=== PATIENT | male | born 1990 | race Caucasian/White ===

== ENCOUNTER 2024-02-20 09:45 | Emergency (ER) | payer BC, SELFPAY ==
[2024-02-20 09:48] VITALS: BP 125/86
--- NOTE | 2024-02-20 10:19 | ED.GENMED ---
History of Present Illness
General
Chief Complaint: Back Pain
Source: patient
Exam Limitations: none
Time Seen by Provider: 02/20/24 10:03
Nursing documentation reviewed up to this point in time: agreed with
History of Present Illness
History of Present Illness:
Patient is a 33-year-old male who presents to the ER complaining of low back pain. He started with pain on Saturday night. 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 He reports pain is worse with
movement. It did not radiate. He denies any weakness in lower extremities. He denies any bowel or bladder incontinence. He denies any paresthesias denies any saddle paresthesia. He denies any abdominal pain, urinary frequency or urgency.
Denies any hematuria. No recent fever/rash
He has taken ibuprofen which and has used moist heat. He does report that he does seem to help. He went to urgent care and was sent here to the ER.
Past History
Past History
ED Past Medical History: None
ED Past Surgical History: Orthopedic
Social History
Tobacco: Non-smoker
Alcohol: None
Drug: None
Living: with family
Phy Exam
General Physical Exam
General Presentation: no apparent distress
General age: appears stated age
General Skin: warm and dry
General Habitus: normal
General Mental: alert
General Hydration: appears well hydrated
Neurological Exam
Neurological Exam: alert, oriented x3, no motor deficits, normal reflexs and other (Normal dorsiflexion plantarflexion bilaterally intact distal sensation )
Musculoskeletal Exam
Musculoskeletal Exam: full ROM and other (normal inspection to back no erythema no midline tenderness mildly tender to bilateral paralumbar region)
Skin Exam
Skin Exam: normal color and warm/dry
Psychiatric Exam
Psychiatric Exam: normal mood/affect
Course
Orders/Labs/Results
Orders:
Orders
02/20/24 10:18
Acetaminophen [Tylenol] 1,000 mg PO NOW STA
Ketorolac [Toradol] 30 mg IM NOW STA
Lidocaine [Lidocaine 4% Patch] 1 patch TOPICAL NOW STA
Apply Lidocaine patch(s) to:: lumbar region
Vital Signs
Initial and Last Documented VS:
Initial Vital Signs
Temp Pulse Resp BP Pulse Ox
98.1 F 72 18 125/86 99
02/20/24 09:48 02/20/24 09:48 02/20/24 09:48 02/20/24 09:48 02/20/24 09:48
Last Documented Vital Signs
Temp Pulse Resp BP Pulse Ox
98.1 F 72 18 125/86 99
02/20/24 09:48 02/20/24 09:48 02/20/24 09:48 02/20/24 09:48 02/20/24 09:48
MDM/Problems Addressed
Differential Diagnosis Includes:
Not limited to muscle strain
MDM/Problems Addressed:
Symptoms are consistent with lumbar muscular pain. 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
Patient he has no neuro deficits. He does mention that he had problems with abuse of Percocet this past.
will Hold off on muscle relaxers and recommend continued ibuprofen alternating with Tylenol and lidocaine patch with warm moist heat. Patient was given IM Toradol here along with Tylenol Pt non toxic stable for d/c home.
Chronic conditions affecting care:
Issues with narcotic abuse in the past
*Critical Care Note
Total Time (30-74mins, 75-104mins- exclusive of procedures): Not Applicable
ED Attending Note
-
Portions of this chart may have been created with voice recognition software.� Occasional wrong word or��sound alike� substitutions may have occurred due to the inherent limitations of voice recognition software.
Discharge Plan
Departure
Patient Disposition: Home (Routine Discharge)
Date of Disposition: 02/20/24
Time of Disposition: 10:22
Patient with high blood pressure during this ER visit?: No
Condition: Fair
Covid-19: Not Applicable
Discharge Problem:
Low back pain
Instructions: Low Back Pain (DC), BLOOD PRESSURE
Prescriptions:
New
lidocaine 5 % adhesive patch,medicated
1 patch topical DAILY Qty: 15 0RF
Referrals:
Gio William DO [Family Provider] -
Activity Restrictions/Additional Instructions:
As discussed symptoms are consistent with muscular strain. You may take ibuprofen 600 mg every 8 hours with food alternate with Tylenol. A lidocaine patch was sent to your pharmacy use as directed. Follow-up with your family doctor in the next
several days. return if any worsening of symptoms including worsening back pain loss of bowel or bladder numbness tingling weakness in extremities.
Interventions
Interventions:
*Risk Screen - Suicide Last Done: 02/20/24 09:48
*General Assessment Last Done: 02/20/24 09:48
*Neglect/Abuse Screening Last Done: 02/20/24 09:48
ED- Fall Risk Assessment Last Done: 02/20/24 10:33
*ED COVID-19 Vaccine History Last Done: 02/20/24 09:48
*Nursing Disposition Last Done: 02/20/24 10:33
ED-Musculoskeletal Assessment Last Done: 02/20/24 10:32
Discharge Date and Time
Discharge Date/Time: 02/20/24 10:33
Print Language: CROATIAN
[2024-02-20] MEDS: LIDOCAINE 4% PATCH 1 PATCH TOPICAL (10:26)
[2024-02-20] MEDS: TORADOL 30 MG IM (10:27)
[2024-02-20] MEDS: TYLENOL 1000 MG PO (10:27)
== END 2024-02-20 10:33 | disposition home or self-care (01) ==
LOC: EMR 09:45
PROVIDERS: EMERGENCY PHYSICIAN Student in an Organized Health Care Education/Training Program; FAMILY PHYSICIAN Family Medicine
DX: M54.50 Low back pain, unspecified (principal)
CPT/HCPCS: 96372; 99284

== ENCOUNTER 2025-01-29 20:36 | Day surgery (SDC) | payer OTHER, SELFPAY ==
[2025-01-29 15:18] VITALS: BP 157/101
[2025-01-29 15:31] LABS: Hematocrit 47.6 % (39.0-52.0); Hemoglobin 16.1 g/dL (13.0-18.0); Mean Corp Hgb Conc. 33.8 g/dL (33.0-37.0); Mean Corpuscular Volume 78.0 fL (80.0-94.0); Nucleated Red Blood Cells % 0 % (-); Platelet Count 269 10^3/uL (130-400); Red Cell Dist. Width 13.2 % (11.5-14.5)
[2025-01-29 15:51] LABS: ALT (SGPT) 37 U/L (0-50); AST (SGOT) 24 U/L (17-59); Albumin 4.8 g/dl (3.5-5.0); Alkaline Phosphatase 70 U/L (38-126); Blood Urea Nitrogen 13 mg/dl (9-20); Calcium 9.7 mg/dl (8.4-10.2); Carbon Dioxide 29 mmol/L (22-30); Chloride 101 mmol/L (98-107); Glucose 98 mg/dl (70-99); Lipase 141 U/L (23-300); Potassium 4.6 mmol/L (3.5-5.1); Sodium 134 mmol/L (135-145); Total Protein 7.9 g/dl (6.3-8.2); eGFR > 60.00
--- NOTE | 2025-01-29 16:08 | ED.GENMED ---
History of Present Illness
General
Chief Complaint: Abdominal Pain
Time Seen by Provider: 01/29/25 16:18
Nursing documentation reviewed up to this point in time: agreed with
History of Present Illness
History of Present Illness:
34 old male presents the ER for evaluation of upper abdominal pain which has been severe and constant for the last 48 hours. He states that the pain has gotten a little bit better this afternoon, waxing and waning. He describes it to be sharp and
located in his epigastrium with some radiation up into his chest. He states that he was able to tolerate soup individual soup earlier today. He has pervasive nausea but no vomiting. No change in bowel habits. No difficulty with urination. He
denies cough or cold symptoms. He did feel feverish last night. He denies any prior history of abdominal surgery. He tried taking Mylanta without any improvement in his symptoms. He reports that the last food that he ate prior to onset of pain
was roast pork.
Past History
Past History
ED Past Medical History: None
ED Past Surgical History: Orthopedic
Social History
Tobacco: Non-smoker
Alcohol: None
Drug: None
Living: with family
Review of Systems
Review of Systems
Allergies reviewed?: Yes
Phy Exam
Physical Exam
Physical Exam:
Patient is awake, alert, appears in no acute distress, head is NCAT, PERRL, EOMI mucous membranes moist, sclera anicteric, conjunctiva pink, heart regular rate and rhythm without murmurs or ectopy, lungs are clear to auscultation without wheezes
rales or rhonchi, no JVD, abdomen is soft and obese with pain on palpation in the epigastrium and right upper quadrant, positive Mims's, extremities without edema, GCS is 15
Course
Orders/Labs/Results
Orders:
Orders
01/29/25 15:26
Complete Blood Count/With Diff Urgent
Comprehensive Metabolic Panel Urgent
Lipase Urgent
01/29/25 16:45
0.9% Sodium Chloride 1000 ml [Nss] 1,000 ml IV BOLUS
Ketorolac [Toradol] 15 mg IV NOW STA
Ondansetron Injectable [Zofran] 4 mg IV NOW STA
01/29/25 16:46
US Abdomen Complete/Upper Urgent
Comment:
Reason For Exam: RUQ pain
Abnormal Lab Results
01/29/25
15:26
MCV 78.0 L fL
(80.0-94.0)
MCH 26.4 L pg
(27.0-31.0)
Absolute Monos (auto) 0.7 H 10^3/uL
(0.1-0.6)
Sodium 134 L mmol/L
(135-145)
01/29/25 15:26
01/29/25 15:26
Normal white blood count. Chemistries within normal limits.Lipase normal
Vital Signs
Initial and Last Documented VS:
Initial Vital Signs
Temp Pulse Resp BP Pulse Ox
98.4 F 68 16 157/101 99
01/29/25 15:18 01/29/25 15:18 01/29/25 15:18 01/29/25 15:18 01/29/25 15:18
Last Documented Vital Signs
Temp Pulse Resp BP Pulse Ox
98.4 F 62 16 128/79 97
01/29/25 15:18 01/29/25 19:04 01/29/25 15:18 01/29/25 19:04 01/29/25 19:04
MDM/Problems Addressed
Differential Diagnosis Includes:
Differential diagnosis to consider but not limited to biliary colic, peptic ulcer disease, gastritis, GERD along with other etiologies considered
Chronic conditions affecting care:
Obesity
*Radiology
Radiology exam reviewed: radiology read reviewed (IMPRESSION: 7.5 mm nonmobile echogenic nonshadowing structure in the gallbladder neck; sludge ball versus calculus. However, no secondary signs of acute cholecystitis. No bile duct dilatation.)
*Pulse Oximetry
SaO2: 99
Oxygen Mode of Delivery: Room air
Patient hypoxic: no
*Critical Care Note
Total Time (30-74mins, 75-104mins- exclusive of procedures): Not Applicable
Update Note
Update Note:
Given patient tenderness on exam, will obtain ultrasound to assess for biliary tract etiology of symptoms. Patient agrees with plan for IV fluids, Toradol, Zofran. Will reassess
1914: I reviewed all test results with patient including finding of nonmobile stone at the gallbladder neck. Patient states he was feeling much better after Toradol administration. I reached out to on-call surgery to review patient presentation
and reassuring labs. He would feel that if patient is feeling better and tolerates p.o. could be discharged for outpatient follow-up. I again went to reevaluate the patient, he is still operator on palpation of the right upper quadrant, I do not
feel comfortable with plan for discharge I feel the patient would benefit from inpatient assessment likely cholecystectomy. I reviewed this with surgeon on-call. Will plan for admission. Patient agrees with plan at current
ED Attending Note
-
Portions of this chart may have been created with voice recognition software.� Occasional wrong word or��sound alike� substitutions may have occurred due to the inherent limitations of voice recognition software.
Discharge Plan
Departure
Patient Disposition: Admit
Date of Disposition: 01/29/25
Time of Disposition: 19:16
Presentation/result/management discussed w/ accepting MD/DO: Hospitalist
Discharge Problem:
Biliary colic
Prescriptions:
No Action
lidocaine 5 % adhesive patch,medicated
1 patch topical DAILY Qty: 15 0RF
Referrals:
UNKNOWN - PT NOT,INTERVIEWE [Family Provider]
Interventions
Interventions:
*Risk Screen - Suicide Last Done: 01/29/25 15:18
*General Assessment Last Done: 01/29/25 15:18
*Neglect/Abuse Screening Last Done: 01/29/25 15:18
LN-Tujzmr-Ybcsmxkddr Assessment Last Done: 01/29/25 16:57
Discharge Date and Time
Print Language: FRISIAN
[2025-01-29] MEDS: TORADOL 15 MG IV (16:54)
[2025-01-29] MEDS: ZOFRAN 4 MG IV (16:55)
[2025-01-29] MEDS: NSS 1000 IV ×2 (16:56→21:20)
[2025-01-29 19:04] VITALS: BP 128/79
[2025-01-29] MEDS: ZOSYN 50 IV (19:38)
--- NOTE | 2025-01-29 20:40 | HPS.HSE ---
Addendum entered and electronically signed by Ben Valladares MD 01/30/25 15:12:
I saw and examined the patient this morning at about 9:30am.
The PATENT ENGINEER's note was reviewed and I agree with the note.
Comment:
34-year-old male with PMH of asthma (inhaler as needed), who presents with 2 to 3 days of pain after eating a fatty meal, abdominal pain in the upper to right abdomen, associated with nausea but no vomiting. Denies fevers. WBC 7.6, T. bili 0.8,
LFTs normal. Ultrasound shows 7 mm gallstone at the neck of the gallbladder that is immobile. No concerning evidence for gwt/PCCF. Patient was given pain medicine and fluids, but the pain persisted. Therefore, he was admitted for concern of
developing acute cholecystitis. This a.m., the pain has not improved and he has still required pain medicine, but denies N/V.
AFVSS, ABD soft, nondistended, tender in the RUQ/epigastric region, no Mims's, no rebound or guarding
No repeat labs
�Although labs and imaging are consistent with biliary colic, his pain has not improved, concerning for acute cholecystitis; therefore, I recommend cholecystectomy; I reviewed the risks, benefits and alternatives; alternatively, we could treat with
antibiotics, but there is a high risk of failure with an immobile stone at the neck of the gallbladder; after this lengthy discussion, the patient elected to proceed with surgery
� Pain control with IV morphine as needed
�N.p.o./IVF
� Continue IV Zosyn until surgery
� DVT PPx with Lovenox
Original Note:
Family Physician
-
Family Physician: INTERVIEWE UNKNOWN - PT NOT
Chief Complaint
-
Abdominal pain
History of Present Illness
This is a 34-year-old man who presents to [facility] with a PMH of R foot fracture requiring surgical repair with complaints for sharp defuse upper abdominal pain that has been waxing and waning for the past 48 hrs. He tried to taking Mylanta at home
without relief. Denies any dietary changes, N/V/D. He reports constipation prior to pain starting. He admits to one other similar episode of abdominal pain in the past that resolved on its own.
Denies diaphoresis, no chest pain, no shortness of breath, no dysuria and urgency and or hematuria. Reports a cough for going on 'ten years' has recently seen pulm. and is seeing ENT this coming Feb.
Medical History
Past Medical History
Past Medical History: Reports None
Past Surgical History: Reports Orthopedic (R foot fracture repair. )
Social History
Tobacco: Non-smoker
Alcohol: Occasional
Drug: Other (Stated he had an 'issue' when he was 16 prefers to avoid narcotics. )
Personal:
Living: With Family
Employment: Employed
Family History
Family History: Not pertinent
Allergies / Home Medications
Allergies reflects when Allergies were last updated in [facility].
Home Medications with original date entered in [facility]
Allergy/Medication List:
Allergies
Allergy/AdvReac Type Severity Reaction Status Date / Time
narcotics Allergy Unknown Uncoded 01/29/25 21:02
Home Medications
acetaminophen 325 mg tablet (Tylenol) 650 mg PO Q6HPRN PRN mild pain 01/29/25
cyanocobalamin (vitamin B-12) 1,000 mcg tablet 1,000 mcg PO DAILY Supplement 01/29/25
Review of Systems
-
History Source: Patient
A 12 point ROS was completed and negative except as noted: Yes
Abdomen/GI: Reports Abdominal Pain
Physical Exam
Vital Signs
Vital Signs
Temp Pulse Resp BP Pulse Ox
98.4 F 62 16 128/79 97
01/29/25 15:18 01/29/25 19:04 01/29/25 15:18 01/29/25 19:04 01/29/25 19:04
Physical Exam
General: Well Developed, No Apparent Distress and Comfortable
HEENT: NormoCephalic
Respiratory: Clear
Cardiac: S1/S2 and Regular Rhythm
GI: Normal Bowel Sounds, Tender and Other (round)
Rectal: Deferred by Provider
Genito-urinary: Deferred by me
Musculoskeletal: No Clubbing and No Edema
Skin: Warm and Dry
Neuro: Awake, Alert and Oriented
Hematologic/Lymphatic: No Lymphadenopathy
Psych: Calm
Laboratory Results
-
01/29/25 15:26
01/29/25 15:
Laboratory Results
Total Bilirubin 0.8 mg/dl (0.2-1.3) 01/29/25 15:
AST 24 U/L (17-59) 01/29/25 15:
ALT 37 U/L (0-50) 01/29/25 15:
Alkaline Phosphatase 70 U/L (38-126) 01/29/25 15:
Lipase 141 U/L (23-300) 01/29/25 15:26
Data Reviewed
-
Ultrasound: Discussed with Patient
Impression/Plan
-
IMPRESSION/PLAN:
Admit to General Surgery- Dr. Ben Valladares
Med Surg
Biliary colic
NPO: @ 0600 okay for clears till 0000
IVF: NSS
ABX: Zosyn cont.
Antiemetics: Zofran- EKG ordered for the morning.
Pain management: pt would prefer to avoid narcotics if possible- he does not have a true allergy. (Toradol, Tylenol, or Morphine)
DVT Prophylaxis: SCDs
Full Code�
[2025-01-29 20:45] VITALS: BP 145/90; BMI 44.4
--- NOTE | 2025-01-29 20:50 | PTCARENOTE ---
pt arrived to 2S @ 2049 from ED. Pt ambulated to the bed w/o difficulty. Pt AOx3, VSS. IVF per order. Admission assessment complete. Pt oriented to room, call sanders within reach, bed locked in lowest position, care ongoing.
[2025-01-29 23:00] VITALS: BP 135/79
[2025-01-29] MEDS: MORPHINE SULFATE 2 MG IV (23:00)
[2025-01-29 23:34] VITALS: PULSE 64
[2025-01-30] VITALS (11 sets, daily range): BP systolic 119–158; BP diastolic 78–94
[2025-01-30] MEDS: ZOSYN 50 IV ×2 (02:08→14:56)
[2025-01-30] MEDS: MORPHINE SULFATE 2 MG IV (06:02)
[2025-01-30] MEDS: VITAMIN B-12 PO (08:00)
[2025-01-30] MEDS: ZOSYN IV (09:18)
--- NOTE | 2025-01-30 11:56 | W.IMMPOSTOP ---
Surgical Immed Post Op Note
-
Primary Surgeon: Ben Valladares MD
Assisting Surgeon: Alondra Lopez NP
Pre-op Diagnosis: Acute cholecystitis
Post-op Diagnosis: Acute cholecystitis
Procedure Performed: Laparoscopic cholecystectomy
Anesthesia Type: General
Specimen / Cultures: Gallbladder
Estimated Blood Loss: 15 mL
Complications: None
Operative Findings: Gallbladder dilated, hyperemic; obtained critical view of safety and successfully clipped the cystic duct and cystic artery; otherwise uneventful
--- NOTE | 2025-01-30 11:57 | OR.RPT ---
Operative Report
Operative Report
DATE OF OPERATION: 01/30/2025
SURGEON: Ben Valladares MD
PREOPERATIVE DIAGNOSIS: Acute cholecystitis
POSTOPERATIVE DIAGNOSIS: Acute cholecystitis
OPERATION: Laparoscopic cholecystectomy
ASSISTANTS:
1. Alondra Lopez NP
ANESTHESIA: General
ESTIMATED BLOOD LOSS: 15 mL
FINDINGS:
1. Dilated and hyperemic gallbladder
2. Successfully obtained critical view of safety
SPECIMENS:
1. Gallbladder
DRAINS: None
COMPLICATIONS: No immediate complications.
INDICATIONS: The patient is a 34-year-old male who presented with upper mid to right abdominal pain associated with nausea after eating a fatty meal. The ultrasound showed a 7 mm nonmobile stone at the neck of the gallbladder. After pain
medication and hydration, the pain did not improve, consistent with acute cholecystitis. Therefore, I recommended a cholecystectomy. The operation was discussed with the patient in detail, including the risks, benefits and alternatives. Risks
described included, but not limited to, bleeding, infection, damage to nearby structures (i.e., common bile duct, liver, bowel), conversion to open and anesthetic risks. The patient understood and agreed to proceed. The consent was signed and placed
in the chart.
PROCEDURE IN DETAIL: The patient was taken to the operating room and placed on the operating table in supine position. Sequential compression devices were placed bilaterally. General anesthesia was induced and the patient was intubated without
complication. The patient was secured to the bed with 1 seatbelt across the thighs and the arms were secured to the armboards. Hernandez catheter was placed with sterile technique. A footboard was placed in case steep reverse Trendelenburg positioning
becomes necessary. Anesthesia placed an orogastric tube. Patient recently received IV Zosyn. The abdomen was shaved, prepped and draped in the usual sterile fashion. A time-out was performed verifying the correct patient, procedure, operative
site, positioning, and special equipment.
An 11 blade scalpel was used to create a stab incision at Nova's point. The Veress needle was carefully inserted. After three clicks, insufflation was attached to the Veress needle and an opening pressure of less than 8 mmHg was noted. The
abdomen was insufflated to a pressure of 15 mmHg. The patient tolerated insufflation well. Next, the 11 blade scalpel was used to create a 5 mm incision along the midline about 15 cm from the target anatomy. Using the 5-0 camera and the Optiview
trocar, the first 5 mm port was placed under direct visualization ensuring no injury to adjacent organs. A 5-30 camera was connected and inserted, and the abdomen was inspected. No injury from initial trocar placement or Veress needle placement
was noted. The gallbladder was noted to be dilated and hyperemic. Additional trocars were inserted under direct visualization in the following locations: two 5 mm trocars along the right costal margin in the anterior axillary line and mid-axillary
line and a 12 mm trocar in the right epigastrium just lateral to the falciform ligament. The table was placed in reverse Trendelenburg position with the right side up.
A laparoscopic needle was used to aspirate bile from the gallbladder as it was too distended to be grasped. About 40 mL of green bile was aspirated. The dome of the gallbladder was grasped with a locking atraumatic grasper and retracted over the
dome of the liver. The infundibulum was also grasped with an atraumatic grasper and retracted toward the right lower quadrant to expose the triangle of Calot. The peritoneum was scored and incised with electrocautery along the medial and lateral
margins of the gallbladder. Using a combination of hook cautery and blunt dissection, the cystic duct and cystic artery were identified and circumferentially dissected. The critical view of safety was achieved. The cystic duct and the cystic
artery were clipped and divided such that 3 clips remained on the cystic duct stump and 2 clips remained on the cystic artery stump.
The gallbladder was dissected from its peritoneal attachments to the gallbladder fossa by electrocautery. Prior to complete removal of the gallbladder, the gallbladder fossa was closely evaluated. No liver injuries were identified and hemostasis
was assured using electrocautery. The gallbladder was placed in an endoscopic retrieval bag through the epigastric port and set to the side. The gallbladder fossa was irrigated with saline and suctioned. There was no evidence of bleeding from the
gallbladder fossa or cystic artery or leakage of bile from the cystic duct stump. Then, the specimen was removed from the epigastric port. Due to the size of the inflamed gallbladder, the fascia had to be stretched with a Venus clamp. The
gallbladder was passed off as specimen. The fascia of the epigastric port was closed with an 0 Vicryl simple interrupted stitch using laparoscopic visualization and a suture passer. The remaining ports were removed under direct vision and no
bleeding was noted from the trocar sites. The laparoscope was withdrawn and the umbilical trocar removed. The abdomen was allowed to collapse. The port sites were injected with 30mL of 0.25% Marcaine with epinephrine mixed with 0.3mg of
dexamethasone for local anesthesia. The skin was closed with subcuticular sutures of 4-0 Monocryl and Dermabond.
At this point, the procedure was complete. All needle, sponge and instrument counts were correct. The patient tolerated the procedure well. The patient was extubated without complication and was transferred to the recovery room in stable condition.
Of note, Alondra Lopez NP, pharmacy affairs assistant, was necessary during this procedure for traction, countertraction, and exploratory purposes. I was present for the entire duration of the case.
DICTATED BY: Bne Valladares MD
[2025-01-30] MEDS: ZOFRAN 4 MG IV (12:00)
--- NOTE | 2025-01-30 12:52 | PTCARENOTE ---
pt received back to room from PACU @ 1250. pt awake and alert. 4 lap sites, 1 puncture site METAL BURRER w/ surgical glue. call sanders in reach. post op plan of care reviewed. pt verbalized understanding. tolerating small sips of water. care ongoing.
[2025-01-30] MEDS: NSS 1000 IV (13:08)
[2025-01-30] MEDS: ULTRAM 50 MG PO (14:58)
--- NOTE | 2025-01-30 15:35 | CM ---
Addendum entered by Román Velásquez 01/30/25 15:37:
OBS status reviewed, OBS letter placed on chart, pt has a copy.
Original Note:
CM following re: discharge planning.
Reviewed pt's chart, met with pt.
Pt is a 34 year old male, admitted with primary dx of POD#0 Laparoscopic cholecystectomy.
pt report he lives with spouse and a son in a 2SH, another child on the way. pt is independent in all areas [employer].
D/C plan: home no needs.
--- NOTE | 2025-01-30 18:32 | PTCARENOTE ---
pt out of bed, ambulatory to bathroom, voided large amount of urine. tolerated low fat diet. denies nausea. IVF capped. pain management plan of care reviewed. ice pack in use prn. care ongoing.
[2025-01-31 00:21] VITALS: PULSE 73
[2025-01-31 03:00] VITALS: BP 156/89
[2025-01-31 07:15] VITALS: BP 142/88
[2025-01-31] MEDS: VITAMIN B-12 1000 MCG PO (08:54)
[2025-01-31] MEDS: TORADOL 10 MG IV (08:57)
[2025-01-31 11:00] VITALS: BP 137/85
--- NOTE | 2025-01-31 12:55 | W.PN.GS2 ---
Today's Communication / Plan
-
discharge
Assessment / Plan
-
POD#1 Laparoscopic cholecystectomy
vitals normal
no labs today
-OOB as tolerated
-Tolerating a diet
-Voiding without difficulty
-Okay for d/c home with Tylenol and Ibuprofen. Follow up with Dr. Valladares in 2 to 4 weeks from discharge. Discussed with patient.
Subjective Data
-
Date of Service: January 31, 2025
Patient states that he feels well. Denies nausea or vomiting. He tolerated a diet.
Objective Data
-
Intake and Output
01/30/25 01/31/25 02/01/25
06:59 06:59 06:59
Intake Total 1090 / 1090 1245 / 1245
Balance 1090 / 1090 1245 / 1245
Intake:
Oral fluids 240 / 240 720 / 720
IV fluids (Total) 800 / 800 475 / 475
normosol 75 / 75
IV piggybacks 50 / 50 50 / 50
Other:
Number of approximated MODERATE 2
amounts of urine
Number of approximated LARGE 1
amounts of urine
Vital Signs
Temp Pulse Resp BP Pulse Ox
98.0 F 65 18 137/85 100
01/31/25 11:00 01/31/25 11:00 01/31/25 11:00 01/31/25 11:00 01/31/25 11:00
Lab Results
01/29/25 15:26
01/29/25 15:26
Calcium 9.7 mg/dl (8.4-10.2) 01/29/25 15:26
Total Bilirubin 0.8 mg/dl (0.2-1.3) 01/29/25 15:26
AST 24 U/L (17-59) 01/29/25 15:26
ALT 37 U/L (0-50) 01/29/25 15:26
Alkaline Phosphatase 70 U/L (38-126) 01/29/25 15:26
Total Protein 7.9 g/dl (6.3-8.2) 01/29/25 15:26
Albumin 4.8 g/dl (3.5-5.0) 01/29/25 15:26
Physical Exam
-
AAOX3
Abdomen: non tender, no distention
incisions: c/d/i
Patient has a horn catheter: No
Patient has a central line: No
== END 2025-01-31 13:56 | disposition home or self-care (01) ==
LOC: SDS 20:36
PROVIDERS: Emergency Medicine; ATTENDING PHYSICIAN Surgery; EMERGENCY PHYSICIAN Emergency Medicine
DX: K81.0 Acute cholecystitis (principal)
CPT/HCPCS: 47562; 76700; 80053; 83690; 85025; 88304; 93005; 94660; 96361; 96365; 96375; 99284